=== PATIENT | female | born 1990 | race Caucasian/White ===

== ENCOUNTER 2023-01-01 18:04 | Emergency (ER) | payer OTHER ==
[2023-01-01 18:14] VITALS: BP 121/79; PULSE 99; RESP 18; TEMP 97.9; BMI 28.3
[2023-01-01 19:15] LABS: PH,URINE 6.5 (5.0-8.0); URINE APPEARANCE CLEAR; URINE BILIRUBIN NEGATIVE (NEGATIVE); URINE COLOR YELLOW; URINE GLUCOSE (UA) NEGATIVE (NEGATIVE); URINE KETONE NEGATIVE (NEGATIVE); URINE LEUK ESTERASE NEGATIVE (NEGATIVE); URINE NITRITE NEGATIVE (NEGATIVE); URINE PROTEIN NEGATIVE (NEGATIVE); URINE UROBILINOGEN 0.2 mg/dL (0.2-1.0)
== END 2023-01-01 19:46 | disposition home or self-care (01) ==
LOC: JERFT 18:04
DX: R50.9 Fever, unspecified (principal); J02.9 Acute pharyngitis, unspecified; R10.84 Generalized abdominal pain; M79.10 Myalgia, unspecified site; J39.9 Disease of upper respiratory tract, unspecified; B34.9 Viral infection, unspecified; Z20.822 Contact with and (suspected) exposure to COVID-19
CPT/HCPCS: 0241U-QW; 81003; 87086; 87651; 99283-25